=== PATIENT | female | born 1985 | race African-American/Black ===

== ENCOUNTER 2021-08-24 10:40 | Emergency (ER) | payer MEDICAID, OTHER ==
[~2021-08-24] VITALS: Ht 170.2 cm; Wt 70.3 kg
[2021-08-24 11:11] VITALS: BP 134/88
[2021-08-24] MEDS ORDERED: ACETAMINOPHEN 500 MG TAB PO ONE (12:00)
[2021-08-24] MEDS ORDERED: ONDANSETRON ODT 4 MG TAB PO ONE (12:00)
[2021-08-24] MEDS ORDERED: BACL10TA PO ×2 (13:11→13:13)
[2021-08-24] MEDS ORDERED: IBUP800T27 PO ×2 (13:11→13:13)
== END 2021-08-24 13:21 | disposition home or self-care (01) ==
LOC: EDBD 10:40 → ER 10:40
DX: S16.1XXA Strain of muscle, fascia and tendon at neck level, initial encounter (principal); S39.012A Strain of muscle, fascia and tendon of lower back, initial encounter; Z79.1 Long term (current) use of non-steroidal anti-inflammatories (NSAID); Z79.899 Other long term (current) drug therapy; V43.62XA Car passenger injured in collision with other type car in traffic accident, initial encounter; Y93.89 Activity, other specified; Y92.410 Unspecified street and highway as the place of occurrence of the external cause; Y99.8 Other external cause status
CPT/HCPCS: 72040; 72100; 99284; Q0162